=== PATIENT | male | born 1975 | race African-American/Black ===

== ENCOUNTER 2017-01-28 13:56 | Emergency (ER) | payer SELFPAY ==
--- NOTE | 2017-01-28 13:57 | ED Physician Chart ---
Chief Complaint/HPI - Patient Information Date Seen:: 01/28/17 Time Seen:: 13:57 Chief Complaint:: throat pain History of Present Illness:: 41-year-old male, otherwise healthy, complains of acute, worsening, constant, severe, 10 out of 10, aching, worse with swallowing, nonradiating, throat pain since . Associated upper respiratory congestion. Historian:: Patient Review:: Nurse's Note Reviewed Review of Systems - Review of Systems Other: Complete system review otherwise unremarkable except as noted in history of present illness. Past Medical History - Past Medical History Past Medical History: No significant medical hx Family History: None Social History: Non Smoker, No Alcohol, No Drug Use, Employed Surgical History: None Psychiatricy History: None Medication: None Family Medical History - Family Member Mother History Unknown: Yes Physical Exam - Physical Examination Other:: INITIAL VITAL SIGNS: Reviewed by me GENERAL: Alert and interactive. No acute distress HEAD: Head is normocephalic and atraumatic EYES: EOMI. PERRL. No scleral icterus. No conjunctival injection ENT: Severe pharynx is erythematous and tonsils are edematous with slightly today. NECK: Supple. The lateral cervical adenopathy greater on the left than right. Full range of motion RESPIRATORY: No tachypnea. Clear breath sounds bilaterally. No wheezing, rales, or rhonchi CV: Regular rate and rhythm. No murmurs, rubs, or gallops ABDOMEN: Soft, non-distended, non-tender. No guarding. No rebound. No masses. EXTREMITIES: No deformity. No cyanosis. No edema. SKIN: Warm and dry. No obvious rashes. NEUROLOGIC: Alert and oriented. Face is symmetric. Speech is normal. Moves all extremities equally. Motor and sensory distally intact. ED Septic Shock - . Is Septic Shock (SBP<90, OR Lactate>4 mmol\L) present?: No Reassessment (Disposition) - Reassessment Reassessment:: Patient has acute throat pain due to acute pharyngitis. Treat definitively here in the ER. Gave intramuscular Decadron, Toradol, Bicillin 1.2 million units. Also give prescription for ibuprofen for comfort. Follow-up PCP 1-2 days. Return to ER precautions were given. Patient understands and agrees the plan. Reassessment Condition:: Improved - Diagnosis Diagnosis:: Acute throat pain due to acute pharyngitis, bacterial, unspecified - Aftercare/Follow up Instructions Aftercare/Follow-Up Instructions:: Counseled pt regarding lab results/diagnosis & need follow up, Refer to Discharge Instructions Medication Prescribed:: Ibuprofen - Patient Disposition Time:: 14:31 Condition at Disposition:: Improved ED Discharge Plan - Patient Disposition Admit/Discharge/Transfer: PT DISCHARGED HOME Condition at Disposition: Improved Instructions: Viral and Bacterial Pharyngitis
[2017-01-28] MEDS ORDERED: Dexamethasone Sodium Phos 4 mg/mL Vial IM STA (14:08)
[2017-01-28] MEDS ORDERED: Dexamethasone Sodium Phos 10 mg/mL PF Vial ONE (14:13)
== END 2017-01-28 14:40 | disposition home or self-care (01) ==
LOC: ER 13:56
DX: J02.8 Acute pharyngitis due to other specified organisms (principal); B96.89 Other specified bacterial agents as the cause of diseases classified elsewhere
CPT/HCPCS: 99284; 96372 ×3; J0561; J1885; Z7502

== ENCOUNTER 2018-07-15 21:56 | Emergency (ER) | payer MEDICAID ==
--- NOTE | 2018-07-15 22:12 | ED Physician Chart ---
ED Chief Complaint/HPI - Patient Information Date Seen:: 07/15/18 Time Seen:: 22:11 Chief Complaint:: Low back pain History of Present Illness:: 43 yo male had right flank pain and muscle spasm for 3 days. Lying supine relieved pain. Patient denied any leg pain, numbness or dysuria. Patient had history of low back pain every 6 months for 5 years. Patient described this time the pain was worst. Allergies:: Allergies Allergy/AdvReac Type Severity Reaction Status Date / Time No Known Allergies Allergy Verified 07/15/18 22:10 ED Review of Systems - Review of Systems General/Constitutional: No fever Skin: No skin lesions Head: No headache Eyes: No pain ENT: No nasal drainage Neck: No neck pain Cardio Vascular: No chest pain Pulmonary: No SOB GI: Other (bloating) G/U: No dysuria Musculoskeletal: Back pain Neurological: No syncope, No focal symptoms, No paresthesia ED Past Medical History - Past Medical History Past Medical History: Other (low back pain) Social History: Non Smoker, Alcohol (drinks 5-6 beers a week), Illicit Drug Use (marijuana) Surgical History: other (Left shoulder reconstruction surgery, left eye lazy eye surgery) Family Medical History - Family Member Mother History Unknown: Yes ED Physical Exam - Physical Examination General/Constitutional: Awake, Alert Head: Atraumatic Eyes: PERRL Skin: No skin lesions ENMT: Nasal exam nl Neck: No nuchal rigidity Respiratory: No Wheeze/Rhonchi/Rales Cardio Vascular: RRR, No murmur, gallop, rubs, NL S1 S2 GI: No tenderness/rebounding/guarding Other GI comments:: No CVA percussion tenderness Other Extremities comments:: Low back tenderness, with painful and limited ROM Neuro/Psych: Normal motor strength ED Labs/Radiology/EKG Results - Radiology Results Results: Lumbar spine X ray: moderate degenerative change at L5-S1 level. CT abdomen/pelvis: No obstructing right urinary stones, minimally prominent left renal collecting system and left ureter, which could reflect recently passed stone. ED Assessment - Assessment General Assessment: Urinary stones Renal colic Assessment/Comments:: UA, urine drug screen L-spine X ray CT abdomen/pelvis Toradol 60mg IM D/c home Tamsulosin F/u PCP and urologist, or return to ER if symptoms worsen ED Septic Shock - . Is Septic Shock (SBP<90, OR Lactate>4 mmol\L) present?: No ED Reassessment (Disposition) - Reassessment Reassessment Condition:: Improved - Aftercare/Follow up Instructions Medication Prescribed:: Tamsulosin 0.4mg PO QD #30 - Patient Disposition Discharge/Transfer:: Home
[2018-07-15 22:44] LABS: URINE SOURCE RANDOM
[2018-07-15 22:49] LABS: URINE BILIRUBIN NEGATIVE (NEGATIVE); URINE BLOOD NEGATIVE (NEGATIVE); URINE GLUCOSE (UA) NEGATIVE (NEGATIVE); URINE KETONE NEGATIVE (NEGATIVE); URINE LEUKOCYTE ESTERASE NEGATIVE (NEGATIVE); URINE NITRATE NEGATIVE (NEGATIVE); URINE PROTEIN NEGATIVE (NEGATIVE); URINE UROBILINOGEN 0.2 E.U./dL (0.2 - 1.0)
[2018-07-15 22:50] LABS: URINE CLARITY CLEAR (CLEAR); URINE COLOR YELLOW; URINE MICROSCOPIC INDICATED? NO
[2018-07-15 22:57] LABS: AMPHETAMINE URINE NEGATIVE (NEGATIVE); BARBITURATES URINE NEGATIVE (NEGATIVE); BENZODIAZEPINES QUAL URINE NEGATIVE (NEGATIVE); CANNABINOID THC NEGATIVE (NEGATIVE); COCAINE METABOLITE QUAL URINE NEGATIVE (NEGATIVE); METHADONE URINE NEGATIVE (NEGATIVE); METHAMPHETAMINES QUAL URINE NEGATIVE (NEGATIVE); OPIATES (MORPHINE) QUAL. URINE NEGATIVE (NEGATIVE); PHENCYCLIDINE (PCP) URINE NEGATIVE (NEGATIVE); TRICYCLICS (TCA) QUAL. URINE NEGATIVE (NEGATIVE)
--- NOTE | 2018-07-16 08:01 | Diagnostic Imaging Report ---
CT scan abdomen and pelvis without intravenous contrast HISTORY: Pain Total DLP equals CTDI equals Axial sections were obtained from the xiphoid process down to the pubic symphysis. The liver exhibits a homogeneous parenchyma. No focal lesions. The spleen appears normal. There is a somewhat distended debris-filled stomach. Significance should be correlated clinically. No focal abnormality seen in the region of the pancreas. No focal renal lesions. The exam of the pelvis demonstrates preservation of normal fat planes. No abnormal soft tissue masses or abnormal fluid collections. No bowel dilatation. IMPRESSION: 1. Somewhat distended debris-filled stomach. Significance should be correlated clinically. No other acute abnormalities
--- NOTE | 2018-07-16 08:15 | Diagnostic Imaging Report ---
Lumbar spine (3 views) HISTORY: Pain Alignment is normal. Degenerative changes are seen about the L5-S1 level with spur formation about the vertebral endplates. Hypertrophic changes seen about the facet joints at this level. No acute abnormalities. IMPRESSION: 1. Degenerative changes L5-S1 2. No acute abnormalities
== END 2018-07-16 00:16 | disposition home or self-care (01) ==
LOC: ER 21:56
DX: N20.9 Urinary calculus, unspecified (principal); N23 Unspecified renal colic
CPT/HCPCS: 99285; 96372; 72110; 74176; 80307; 81003; J1885

== ENCOUNTER 2018-07-27 19:13 | Emergency (ER) | payer MEDICAID ==
--- NOTE | 2018-07-27 19:52 | ED Physician Chart ---
ED Chief Complaint/HPI - Patient Information Date Seen:: 07/27/18 Time Seen:: 19:47 Chief Complaint:: Fever and post nasal drainage History of Present Illness:: 43 yo male had fever up to 102.5, sore throat and post nasal drainage for 3 days. Patient stated that cough would worsen the sore throat. Allergies:: Allergies Allergy/AdvReac Type Severity Reaction Status Date / Time No Known Allergies Allergy Verified 07/15/18 22:10 ED Review of Systems - Review of Systems General/Constitutional: Fever, Chills Skin: No rash Head: Headache Eyes: No pain ENT: No earache, Nasal drainage, Sore throat Neck: Neck pain Cardio Vascular: No chest pain Pulmonary: No SOB GI: No nausea, No vomiting Musculoskeletal: Bone or joint pain, Muscle pain Neurological: No focal symptoms ED Past Medical History - Past Medical History Past Medical History: Other (Neck pain ) Social History: Non Smoker, No Alcohol, Illicit Drug Use (marijuana) Surgical History: None Family Medical History - Family Member Mother History Unknown: Yes ED Physical Exam - Physical Examination General/Constitutional: Awake Head: Atraumatic Eyes: PERRL Skin: No skin lesions Other ENMT comments:: Oropharyngeal erythema Neck: No nuchal rigidity Respiratory: No Wheeze/Rhonchi/Rales Cardio Vascular: RRR, No murmur, gallop, rubs, NL S1 S2 GI: No tenderness/rebounding/guarding Extremities: normal strength in all extremities Neuro/Psych: Normal motor strength ED Assessment - Assessment General Assessment: Upper respiratory infection likely due to viral origin Assessment/Comments:: CBC, CMP Tylenol 650mg po D/c home Keep hydration F/u PCP or return to ER if symptoms worsen ED Septic Shock - . Is Septic Shock (SBP<90, OR Lactate>4 mmol\L) present?: No ED Reassessment (Disposition) - Reassessment Reassessment Condition:: Improved - Patient Disposition Discharge/Transfer:: Home
[2018-07-27 20:12] LABS: % BASOPHILS 0.3 % (0.0-2.0); % EOSINOPHILS 5.2 % (0.0-5.0); % LYMPHOCYTES 28.3 % (20.0-50.0); % NEUTROPHILS 55.2 % (40.0-80.0); EOSINOPHILE ABSOLUTE 0.3 Th/cmm (0.1-0.4); HEMATOCRIT 47.8 % (41.0-60); LYMPHOCYTE ABSOLUTE 1.8 Th/cmm (1.5-3.0); MEAN CELL VOLUME 90.1 fl (80-99); MEAN CORPUSCULAR HEMOGLOBIN 30.1 pg (26.0-30.0); MEAN CORPUSCULAR HGB CONC 33.5 pg (28.0-36.0); MONOCYTE ABSOLUTE 0.7 Th/cmm (0.3-1.0); NEUTROPHILE ABSOLUTE 3.4 Th/cmm (1.8-8.0); PLATELET COUNT 216 Th/cmm (150-400); RED BLOOD COUNT 5.31 Mil/cmm (4.30-5.70); RED CELL DISTRIBUTION WIDTH 11.9 % (11.5-20.0); WHITE BLOOD COUNT 6.2 Th/cmm (4.8-10.8)
[2018-07-27 20:27] LABS: ALB/GLOB RATIO 1.7 (1.0-1.8); ALBUMIN 4.3 gm/dL (4.2-5.5); ALKALINE PHOSPHATASE 77 U/L (34-104); ANION GAP 10.4 (7.0-16.0); BILIRUBIN,TOTAL 0.5 mg/dL (0.3-1.0); BUN - UREA NITROGEN 13 mg/dL (7-25); CALCIUM SERUM 9.3 mg/dL (8.6-10.3); CARBON DIOXIDE 26.5 mEq/L (21.0-31.0); CHLORIDE 104 mEq/L (98-107); CREATININE - SERUM 1.2 mg/dL (0.7-1.3); GFR AFRICAN-AMERICAN > 60.0 ml/min (>90); GFR NON AFRICAN-AMERICAN > 60.0 ml/min; GLUCOSE 100 mg/dL (70-105); POTASSIUM SERUM 3.9 mEq/L (3.5-5.1); SGOT 21 U/L (13-39); SGPT/ALT 22 U/L (7-52); SODIUM SERUM 137 mEq/L (136-145); TOTAL PROTEIN,SERUM 6.9 gm/dL (6.0-8.3)
== END 2018-07-27 20:44 | disposition home or self-care (01) ==
LOC: ER 19:13
DX: J06.9 Acute upper respiratory infection, unspecified (principal); M54.2 Cervicalgia; M79.1 Myalgia
CPT/HCPCS: 36415-UA; 80053-TC; 85025-TC; Z7502; Z7610